=== PATIENT | female | born 1985 | race Caucasian/White ===

== ENCOUNTER 2025-08-10 13:09 | Emergency (ER) | payer MEDICAID ==
[~2025-08-10] VITALS: Ht 162.6 cm; Wt 86.9 kg
[2025-08-10 13:34] VITALS: TEMP 97.2
[2025-08-10] MEDS: triamcinolone acetonide 40mg/ml inj IM ONE (14:49)
--- NOTE | 2025-08-10 15:25 | Physician Documentation ---
History of Present Illness ~ General Chief Complaint: General Stated Complaint: ALL OVER BODY PAIN Time Seen by MD: 14:24 [facility] Source: patient Mode of Arrival: POV Exam Limitations: no limitations History of Present Illness Initial Comments 40-year-old female who is here with all over body pain which she states she has had for years and has had a workup from her primary care provider but the cause is unclear. Patient has been taking [id number] Tylenol and Motrin without any relief. She is requesting some pain medication so she can get through the weekend. She denies any joint swelling, no redness, recent injuries. Medication Reconciliation Allergies: Coded Allergies: No Known Allergies (Unverified , 08/10/25) Past Medical History Past Medical History: No Pertinent History Review of Systems All Other Systems at this time: Reviewed and Negative Physical Exam Physical Exam Vital Signs: Temperature: 97.2, Source: Temporal, Heart Rate: 81, Respiratory Rate: 16, BP: 113/83, Pulse Oximetry: 98, Weight: 86.900 Oxygen Flow Rate: 0 Physical Exam GENERAL: Alert, no acute distress. HEENT: NCAT, EOMI, PERRL, moist oral mucosa. NECK: Supple, trachea midline. CARDIAC: Regular rate and rhythm, no murmurs, rubs, or gallops. RESPIRATORY: Equal breath sounds, clear to auscultation bilaterally, no respiratory distress. MUSCULOSKELETAL: Normal range of motion, nontender, no swelling, no redness. Normal gait. NEUROLOGICAL: Awake, alert, and oriented x 3. SKIN: Warm/dry, no pallor, no rash. PSYCH: Alert and appropriate. Affect congruent with mood. Speech is clear. Good eye contact. Progress Results/Orders Results/Orders Completed Orders - MARYLIN GOTTI Triamcinolone Acet 40mg/Ml Inj (Kenalog- (08/10/25 14:35) Medications Received in ER Medications (Trade) Dose Ordered Sig/Salud Route PRN Reason Start Time Stop Time Status Last Admin Dose Admin (Kenalog-40 inj) 40 mg ONCE ONCE IM 08/10/25 14:35 08/10/25 14:36 DC 08/10/25 14:49 40 MG Vital Signs 08/10/25 08/10/25 08/10/25 13:34 13:57 14:52 Temp 97.2 Pulse 90 81 Resp 18 16 B/P (MAP) 132/93 113/83 (93) Pulse Ox 97 98 O2 Flow Rate 0 0 Medical Decision Making Additional information obtaine: N/A Findings n/a Differential Diagnosis ddx for diffuse joint pain that is chronic: lymes disease, fibromyalgia, rheumatological process, multiple sclerosis, osteoarthritis, depression. Patient has already been worked up by your primary care provider for autoimmune conditions I am unsure if she has been worked up for Lyme disease but she can follow up with her PCP on this. Her symptoms are not consistent with multiple sclerosis as there is no numbness, tingling or weakness. She denied depression. Symptoms with normal exam is most consistent with fibromyalgia. Departure Time of Disposition: 15:25 Disposition: HOME / SELF CARE / HOMELESS Impression: Primary Impression: Joint pain Qualified Codes: M25.50 - Pain in unspecified joint Additional Impression: Muscle pain Condition: Stable Discharge Instructions: Myofascial Pain Syndrome and Fibromyalgia Additional Instructions: pain most consistent with fibromyalgia f/u with pcp Referrals: NO PRIMARY CARE PROVIDER (PCP) Prescriptions Hydrocodone Bit/Acetaminophen (Hydrocodone-Apap 10-325 Tablet) 10mg/325mg Tablet 1 TAB PO Q12H PRN PRN for pain for 5 Days, #10 TAB dx: fibromyalgia M79.7 arthralgia M25.50 Prov: MARYLIN GOTTI 08/10/25 Education Educated: Patient Educated regarding: diagnosis, treatment, need for follow up Signature Scribe Signature: x Attestation: MARYLIN Marquez Aug 10, 2025 15:25
[2025-08-10] MEDS ORDERED: HYDR-3973 PO (15:28)
[2025-08-10 15:33] VITALS: BP 138/89; PULSE 73; O2SAT 98
[2025-08-10 15:41] VITALS: RESP 16
[2025-08-10] MEDS: HYDROcodone/acetaminophen 10/325mg tab PO ONE (15:41)
== END 2025-08-10 15:42 | disposition home or self-care (01) ==
LOC: ER 13:11
DX: M25.50 Pain in unspecified joint (principal); M79.10 Myalgia, unspecified site
CPT/HCPCS: 96372; 99283; J3301

== ENCOUNTER 2025-08-21 19:57 | Emergency (ER) | payer MEDICAID ==
[~2025-08-21] VITALS: Ht 162.6 cm; Wt 86.9 kg
--- NOTE | 2025-08-21 21:09 | Physician Documentation ---
History of Present Illness ~ General Chief Complaint: See Chief Complaint Stated Complaint: BODY PAIN Time Seen by MD: 20:53 Primary Medical Doctor: [facility] History of Present Illness Initial Comments 40-year-old female presents to ED with the complaint of all-over body pain. She was recently seen here in the ED and it was noted that she has had a full workup in the outpatient setting and has had labs done indicating that she does not have any immune diseases. She denies any acute injury. States that the pain meds that she was given last time did not help anyway. She states she just wants" answers." Medication Reconciliation Allergies: Coded Allergies: No Known Allergies (Unverified , 08/21/25) Discontinued Medications Hydrocodone Bit/Acetaminophen (Hydrocodone-Apap 10-325 Tablet), 1 TAB PO Q12H PRN PRN for pain Discontinued Reason: Auto Discontinued Past Medical History Past Medical History: No Pertinent History Review of Systems All Other Systems at this time: Reviewed and Negative ROS As stated above in the HPI, otherwise all systems are reviewed and negative. Physical Exam Physical Exam Vital Signs: Temperature: 97.0, Source: Temporal, Heart Rate: 95, Respiratory Rate: 22, BP: 172/115, Pulse Oximetry: 97, Weight: 86.900 Physical Exam General: Alert, no apparent distress. Respiratory: Lungs clear, no respiratory distress. Cardiovascular: Regular rate and rhythm, no murmurs. Gastrointestinal: Soft, nontender, nondistended. Bowels sounds present. Neurologic: Oriented x4. Psychiatric: Normal mood and affect. Skin: Normal color, warm and dry. No edema, no ecchymosis. Progress Results/Orders Results/Orders Vital Signs 08/21/25 20:04 Temp 97.0 Pulse 95 Resp 22 B/P (MAP) 172/115 Pulse Ox 97 Medical Decision Making Additional information obtaine: old records Findings I spent a good deal of time discussing with the patient that the ER is not the best place to obtain a diagnosis for chronic ailments. I explained that she may have fibromyalgia but that will need to be evaluated in the outpatient setting. I offered a Toradol shot and she accepted. Not present any acute distress other than being profusely tearful. Vitals are reassuring shows no signs of distress outside of emotional discomfort Differential Diagnosis n Departure Disposition: 01 HOME / SELF CARE / HOMELESS Impression: Primary Impression: Muscle pain Additional Impression: Joint pain Condition: Stable Discharge Instructions: Myofascial Pain Syndrome and Fibromyalgia Referrals: NO PRIMARY CARE PROVIDER (PCP) Education Educated: Patient Educated regarding: diagnosis Signature Scribe Signature: y Attestation: Scribed for Juancarlos Santillan [employer]hydrogenation Converter Operator by Juancarlos Hdez NP . 08/21/25 21:09 JUANCARLOS SANTILLAN NP Aug 21, 2025 21:09
[2025-08-21] MEDS: ketorolac trometh 30MG/ML vial 30 MG/ML VIAL IM ONE (21:21)
[2025-08-21 21:35] VITALS: BP 124/74; PULSE 70; TEMP 98.1; O2SAT 99
[2025-08-21 21:44] VITALS: RESP 16
== END 2025-08-21 21:50 | disposition home or self-care (01) ==
LOC: ER 19:58
DX: M79.18 Myalgia, other site (principal); M25.50 Pain in unspecified joint
CPT/HCPCS: 96372; 99283; J1885